=== PATIENT | male | born 1985 | race Caucasian/White ===

== ENCOUNTER 2016-08-12 17:39 | Emergency (ER) | payer BC, OTHER ==
[2016-08-12 18:15] VITALS: BP 122/78
[2016-08-12] MEDS ORDERED: BSS OPTH.SOL* BTL ONE (18:23)
[2016-08-12] MEDS ORDERED: Tetracaine 0.5% OPTH.SOL 15ML* BTL ONE (18:23)
[2016-08-12] MEDS ORDERED: Fluorescein Sodium TOPICAL* 1 MG TEST ONE ×2 (18:23→18:24)
--- NOTE | 2016-08-12 19:37 | UC ---
Eye Complaint HPI - HPI Summary HPI Summary: WORKING AT [employer] TODAY RECREATIONALLY. SAWDUST WENT INTO EYES, UP AND OVER SAFETY GLASSES. RINSED OUT EYES, BUT FEELS LIKE EYES ARE SCRATCHED, RIGHT EYE WORSE THAN LEFT. STILL ABLE TO SEE, BUT EYES ARE IRRITATED. - History of Current Complaint Chief Complaint: UCEye Stated Complaint: FB EYE Time Seen by Provider: 08/12/16 18:13 Hx Obtained From: Patient, Family/Advanced Nursing Professor Onset/Duration: Sudden Onset, Lasting Hours, Still Present Timing: Hours Severity Initially: Mild Severity Currently: Moderate Pain Intensity: 0 Pain Scale Used: 0-10 Numeric Location of Injury: Conjunctiva Character: Dull, Foreign Body Sensation Aggravating Factor(s): Nothing Alleviating Factor(s): Nothing Associated Signs And Symptoms: Positive: Drainage (Clear). Negative: Photophobia, Vision Impairment Bilateral, Vision Impairment Right, Vision Impairment Left, Fever, Swelling Related History: Similar Episode - 15 YEARS AGO - Risk Factors Penetrating Injury Risk Factor: Negative Globe Rupture Risk Factors: Negative Acute Glaucoma Risk Factors: Negative Optic Artery Occlusion Risk Factors: Negative - Allergies/Home Medications Allergies/Adverse Reactions: Allergies Allergy/AdvReac Type Severity Reaction Status Date / Time No Known Allergies Allergy Verified 08/12/16 18:06 PMH/Surg Hx/FS Hx/Imm Hx Previously Healthy: Yes Endocrine History Of: Denies: Diabetes, Thyroid Disease Cardiovascular History Of: Denies: Cardiac Disorders, Hypertension Respiratory History Of: Denies: COPD, Asthma GI/ History Of: Denies: Ulcer - Surgical History Surgical History: None - Family History Known Family History: Negative: Other - NO GLAUCOMA - Social History Occupation: Employed Full-time - ARTIST/SUPPLY TEACHER Lives: With Family Alcohol Use: Rare Substance Use Type: None Smoking Status (MU): Former Smoker Review of Systems Constitutional: Negative Skin: Negative Eyes: Eye Redness, Photophobia ENT: Negative Respiratory: Negative Cardiovascular: Negative Gastrointestinal: Negative Genitourinary: Negative Motor: Negative Neurovascular: Negative Musculoskeletal: Negative Neurological: Negative Psychological: Negative All Other Systems Reviewed And Are Negative: Yes Physical Exam Triage Information Reviewed: Yes Appearance: Well-Appearing, No Pain Distress, Well-Nourished Vital Signs: Initial Vital Signs Temp 98.5 F 08/12/16 18:07 Pulse 55 08/12/16 18:07 Resp 18 08/12/16 18:07 BP 122/78 08/12/16 18:07 Pulse Ox 98 08/12/16 18:07 Vital Signs Reviewed: Yes Eyes: Positive: Conjunctiva Inflamed, Other: - FLUORESCEIN UPTAKE BILATERALLY; RIGHT= DIFFUSE CORNEAL UPTAKE NEGAIVE SIDELS; LEFT= FLUORESCEIN UPTAKE AT 3 TO 9 OCLOCK, NEGATIVE SIDELS; NO FOREIGN BODIES VISUALIZED IN EITHER EYE ENT Exam: Normal ENT: Positive: Normal ENT inspection, Pharynx normal, Pharyngeal erythema, TMs normal Dental Exam: Normal Neck exam: Normal Neck: Positive: Supple, Nontender, No Lymphadenopathy Respiratory Exam: Normal Respiratory: Positive: Chest non-tender, Lungs clear, Normal breath sounds, No respiratory distress Cardiovascular Exam: Normal Cardiovascular: Positive: RRR, No Murmur, Pulses Normal, Brisk Capillary Refill Abdominal Exam: Normal Abdomen Description: Positive: Nontender, No Organomegaly Musculoskeletal Exam: Normal Musculoskeletal: Positive: Strength Intact, ROM Intact Neurological Exam: Normal Neurological: Positive: Alert Psychological Exam: Normal Skin Exam: Normal Eye Complaint Course/Dx - Differential Dx/Diagnosis Differential Diagnosis/HQI/PQRI: Conjunctivitis, Corneal Abrasion, Foreign Body Provider Diagnoses: BILATERAL CORNEAL ABRASION Discharge - Discharge Plan Condition: Critical Disposition: HOME Prescriptions: Polymyx/Trimethoprim OPTH* [Polytrim OPHTH*] 1 drop BOTH EYES Q3H #1 btl Patient Education Materials: Corneal Abrasion (ED) Referrals: Roula Santiago MD [Primary Care Provider] -
== END 2016-08-12 19:00 | disposition home or self-care (01) ==
LOC: UCEAST 17:39
DX: S05.02XA Injury of conjunctiva and corneal abrasion without foreign body, left eye, initial encounter (principal); S05.01XA Injury of conjunctiva and corneal abrasion without foreign body, right eye, initial encounter; X58.XXXA Exposure to other specified factors, initial encounter; Y93.89 Activity, other specified; Y92.89 Other specified places as the place of occurrence of the external cause; Y99.0 Civilian activity done for income or pay; Z87.891 Personal history of nicotine dependence
CPT/HCPCS: 99212; A9270-GY; G0463

== ENCOUNTER 2017-01-15 15:05 | Emergency (ER) | payer SELFPAY ==
[2017-01-15 15:44] VITALS: BP 99/67
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
== END 2017-01-15 17:15 | disposition home or self-care (01) ==
LOC: UCEAST 15:05
DX: M54.5 Low back pain (principal); X50.0XXA Overexertion from strenuous movement or load, initial encounter; Y93.89 Activity, other specified; Y92.9 Unspecified place or not applicable; Y99.9 Unspecified external cause status; Z87.891 Personal history of nicotine dependence
CPT/HCPCS: 99212; G0463

== ENCOUNTER 2017-08-19 09:17 | Emergency (ER) | payer OTHER ==
[2017-08-19 12:04] VITALS: BP 136/72
--- NOTE | 2017-08-19 12:05 | UC ---
Respiratory Complaint HPI - HPI Summary HPI Summary: Pt presents with a dry cough for the last 2 weeks. He tells me that his cough began initially as an irritating tickle in his throat, but progressed to feel as if he had chest congestion but could not cough anything up. These symptoms have persisted and he began to have a fever for the last 2 days. Has been taking ibuprofen with good relief of his fever. Denies chills, sore throat, sinus symptoms, SOB, chest pain, abdominal pain, n/v/d/c, or body aches. - History of Current Complaint Chief Complaint: UCRespiratory Stated Complaint: COUGH Time Seen by Provider: 08/19/17 12:04 Hx Obtained From: Patient Onset/Duration: Gradual Onset Severity Initially: Moderate Severity Currently: Moderate Pain Intensity: 5 Pain Scale Used: 0-10 Numeric Character: Cough: Nonproductive - Allergies/Home Medications Allergies/Adverse Reactions: Allergies Allergy/AdvReac Type Severity Reaction Status Date / Time No Known Allergies Allergy Verified 08/19/17 12:04 PMH/Surg Hx/FS Hx/Imm Hx Previously Healthy: Yes - Surgical History Surgical History: None Surgery Procedure, Year, and Place: denies - Family History Known Family History: Positive: None Negative: Other - NO GLAUCOMA - Social History Occupation: Employed Full-time Lives: With Family Alcohol Use: Rare Substance Use Type: None Smoking Status (MU): Former Smoker - Immunization History Most Recent Influenza Vaccination: 2016 Most Recent Tetanus Shot: up to date Review of Systems Constitutional: Fever Skin: Negative Eyes: Negative ENT: Negative Respiratory: Cough Cardiovascular: Negative Gastrointestinal: Negative Musculoskeletal: Negative Neurological: Negative Psychological: Negative All Other Systems Reviewed And Are Negative: Yes Physical Exam - Summary Physical Exam Summary: GENERAL: Mildly ill appearing. NAD. WDWN. No pain distress. SKIN: No rashes, sores, ulcers, masses, lesions. No clubbing or cyanosis. HEENT: Head: AT/NC Eyes: Conjunctiva clear without inflammation or discharge. Ears: Hearing grossly normal. TMs intact, no bulging, erythema, or edema. Nose: Nasal mucosa pink and moist. NTTP maxillary and frontal sinus. Throat: Posterior oropharynx without exudates, erythema, or tonsillar enlargement. Uvula midline. NECK: Supple. Nontender. No lymphadenopathy. CHEST: Mild wheezing throughout. CTAB. No r/r. No accessory muscle use. Breathing comfortably and in no distress. CV: RRR. Without m/r/g. Pulses intact. Brisk cap refill. NEURO: Alert. CN II-XII grossly intact. PSYCH: Age appropriate behavior. Triage Information Reviewed: Yes Vital Signs: Initial Vital Signs Temp 98.6 F 08/19/17 11:57 Pulse 65 08/19/17 11:57 BP 136/72 08/19/17 11:57 Pulse Ox 99 08/19/17 11:57 Diagnostic Evaluation - Laboratory O2 Sat by Pulse Oximetry: 99 Respiratory Course/Dx - Course Course Of Treatment: Suspect bronchitis - Differential Dx/Diagnosis Provider Diagnoses: Bronchitis Discharge - Discharge Plan Condition: Stable Disposition: HOME Prescriptions: Albuterol HFA INHALER* [Ventolin HFA Inhaler*] 2 puff INH Q6H PRN #1 mdi PRN Reason: Wheezing Azithromycin TAB* [Zithromax TAB (Z-RANDOLPH) 250 mg #6 tabs] 2 tab PO .TODAY, THEN 1 DAILY #1 randolph predniSONE TAB* [Deltasone TAB*] 50 mg PO DAILY #5 tab Patient Education Materials: Acute Bronchitis (ED) Referrals: Roula Santiago MD [Primary Care Provider] - Additional Instructions: If you develop a fever, shortness of breath, chest pain, new or worsening symptoms - please call your PCP or go to the ED.
== END 2017-08-19 12:20 | disposition home or self-care (01) ==
LOC: UCEAST 09:17
DX: J40 Bronchitis, not specified as acute or chronic (principal); R50.9 Fever, unspecified; Z87.891 Personal history of nicotine dependence
CPT/HCPCS: 99212; G0463

== ENCOUNTER 2018-09-10 09:02 | Emergency (ER) | payer BC, OTHER ==
[2018-09-10 09:22] VITALS: BP 122/68
--- NOTE | 2018-09-10 09:52 | UC ---
Lower Extremity/Ankle HPI - HPI Summary HPI Summary: 32 yo male presents with right foot pain. He tells me that yesterday he dropped a tractor wheel weight on the top of his right foot. He was wearing steel toe boots at the time. Did not have much pain when it happened, but later that day developed pain to the top of his right foot. He has not taken anything OTC for his pain. Denies numbness or tingling. - History of Current Complaint Chief Complaint: UCLowerExtremity Stated Complaint: RT FOOT INJURY Hx Obtained From: Patient Onset/Duration: Sudden Onset Severity Initially: Mild Severity Currently: Moderate Pain Intensity: 8 Pain Scale Used: 0-10 Numeric Aggravating Factor(s): Standing, Ambulation Able to Bear Weight: Yes - Allergies/Home Medications Allergies/Adverse Reactions: Allergies Allergy/AdvReac Type Severity Reaction Status Date / Time No Known Allergies Allergy Verified 09/10/18 09:22 Home Medications: Home Medications Aspirin 650 mg PO ONCE PRN 09/10/18 [History Confirmed 09/10/18] PMH/Surg Hx/FS Hx/Imm Hx - Additional Past Medical History Additional PMH: None - Surgical History Surgical History: None Surgery Procedure, Year, and Place: denies - Family History Known Family History: Positive: None Negative: Other - NO GLAUCOMA - Social History Occupation: Employed Full-time Lives: With Family Alcohol Use: Rare Substance Use Type: None Smoking Status (MU): Former Smoker - Immunization History Most Recent Influenza Vaccination: 2016 Most Recent Tetanus Shot: up to date Review of Systems All Other Systems Reviewed And Are Negative: Yes Constitutional: Positive: Negative Skin: Positive: Negative Respiratory: Positive: Negative Cardiovascular: Positive: Negative Neurovascular: Positive: Negative Musculoskeletal: Positive: Other: - Right foot pain Neurological: Positive: Negative Psychological: Positive: Negative Physical Exam - Summary Physical Exam Summary: GENERAL: NAD. WDWN. No pain distress. SKIN: No rashes, sores, lesions, or open wounds. CHEST: No accessory muscle use. Breathing comfortably and in no distress. CV: Pulses intact PT and DP. Cap refill <2seconds MSK: RIGHT FOOT: TTP about whole dorsal midfoot without specific point tenderness. Ankle NTTP. 5th MT NTTP. Strength 5/5. No edema or obvious bony deformities. Negative talar tilt. No increased laxity. NEURO: Alert. Sensations intact and symmetric B/L LEs PSYCH: Age appropriate behavior. Triage Information Reviewed: Yes Vital Signs: Initial Vital Signs Temp 98.7 F 09/10/18 09:19 Pulse 69 09/10/18 09:19 Resp 18 09/10/18 09:19 BP 122/68 09/10/18 09:19 Pulse Ox 100 09/10/18 09:19 Vital Signs Reviewed: Yes Lower Extremity Course/Dx - Course Course Of Treatment: XR: REPORT AND IMPRESSION: #. Negative for fracture or articular malalignment. Unremarkable soft tissue contours. Suspect contusion/strain from dropping weight on his foot. Pt was placed in a CAM boot for comfort. Advised to RICE and take tylenol/ibuprofen and f/u if symptoms do not improve - Differential Dx/Diagnosis Provider Diagnosis: Foot contusion Discharge - Sign-Out/Discharge Documenting (check all that apply): Patient Departure All imaging exams completed and their final reports reviewed: Yes - Discharge Plan Condition: Stable Disposition: HOME Patient Education Materials: Contusion in Adults (ED) Referrals: Roula Santiago MD [Primary Care Provider] - Additional Instructions: If you develop a fever, shortness of breath, chest pain, new or worsening symptoms - please call your PCP or go to the ED. 1) Rest, Ice, and elevate your foot as much as possible 2) May take ibuprofen or tylenol for your discomfort 3) Wear the walking boot as needed for comfort - Billing Disposition and Condition Condition: STABLE Disposition: Home
== END 2018-09-10 10:57 | disposition home or self-care (01) ==
LOC: UCEAST 09:02
DX: S90.31XA Contusion of right foot, initial encounter (principal); Z79.899 Other long term (current) drug therapy; Z79.82 Long term (current) use of aspirin; W22.8XXA Striking against or struck by other objects, initial encounter; Y92.9 Unspecified place or not applicable
CPT/HCPCS: 99212; G0463

== ENCOUNTER 2019-08-17 13:06 | Emergency (ER) | payer BC ==
[2019-08-17 14:37] VITALS: BP 135/82
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
== END 2019-08-17 14:57 | disposition home or self-care (01) ==
LOC: UCEAST 13:06
DX: T23.031A Burn of unspecified degree of multiple right fingers (nail), not including thumb, initial encounter (principal); Z87.891 Personal history of nicotine dependence; X12.XXXA Contact with other hot fluids, initial encounter; Y92.9 Unspecified place or not applicable
CPT/HCPCS: 99212; G0463